=== PATIENT | male | born 2000 | race African-American/Black ===

== ENCOUNTER 2024-10-21 17:00 | Outpatient (RCR) | payer MEDICAID, SELFPAY ==
--- NOTE | 2024-05-14 08:24 | HP.OTEVAL_ITS ---
Patient's Visit Information Visit Information Visit Information: CHAIM LOPEZ is a 24 year old M, referred to Occupational Therapy by ALISON EMANUEL, with a diagnosis of Congenital Hemiparesis. Date of Evaluation: 05/13/24 Occupational Therapist: Tomeka Duron, OTR/L, CHT Subjective Subjective: This 24 year old male was seen for OT with dx of congenital hemiparesis. pt arrives with his mom- both explain that left UE has been a ashley tive device and recently pt feels his left wrist has become more difficult to stretch and use. pt states he would like to know what he can do to return to using his left UE for assistive hand. ROM Elbow: right WNL left -30/140 Forearm: right WNL left PROM N ( mod tone) Wrist: right WNL left unable ROM Comments: pt demo with 90* flexion of left wrist fingers ext- PROM can position pt at -10 with moderate tone. pt demo initiation of thumb ex and MCP ext pt can flex digits into light fist. pt at high wrist of left wrist deformity and skin break down Strength Elbow: extension 5/5 left 4-/5 Strength Comments: pt demo with weak left triceps results in ambulation with left elbow and wrist in flexion Quick DASH-Disab of Arm,Shoulder& Hand Quick DASH Score: 31.6650 Goals Goal:: pt will demo increase in left triceps MMT to 4+/5 to offset flexion contracture by d/c Goal:: pt will demo resting wrist position at N to decrease extensor lag by d/c pt will demo a ambulation pose of left wrist at N by d/c pt will demo PIP ext to -20* indication of increase in common extensor tendon function by d.c Goal:: pt will demo the ability to use left UE as assistive device 90% of the time with bilateral hand ADLs by d/c Goal:: pt will demo understanding of using brace 90% of the time to decrease flex. contracture and to shorten extensor mech. by end of 2nd visit. Rehabilitation General Assessment: pt demo with limited left wrist ext in contracted flexed position limiting use of left hand for ADLs and IADLS. Pt would benefit from skilled OT services every two weeks for 6 months to decrease left wrist/elbow contracture to decrease pts risk of skin break down and deformity. Pt and pts mom demo understanding and agree to POC. Rehabilitation Potential: Good Anticipated Interventions Anticipated Interventions: A/AAROM/PROM, Strengthening, Orthoses, Joint Protection/Energy Conservation, Ergonomic Education, Neuro Reeducation, Education re assistive Equipment, Education re Diagnosis, Caregiver Training and Home Program Visit Plan Frequency: every 2 weeks Duration: 6 Months General Plan: work on use of left wrist brace with thumb included to decrease contractures of wrist and thumb- work on strengthening left triceps to offset biceps contracture use of left UE with daily tasks TEXT: Thank you for the opportunity to evaluate your patient. For Medicare and Medicare HMO plans, please review the plan of care and approve it. It will need to be FAXED BACK to us at [phone] for Medicare purposes. Please let me know if there are questions or concerns regarding this plan of care. Physician Signature: Date:
== END 2024-10-21 19:00 | disposition home or self-care (01) ==
LOC: OT 17:00
DX: G80.8 Other cerebral palsy (principal)
CPT/HCPCS: 97110; 97112; 97140; 97166; 97530